=== PATIENT | female | born 2000 | race Caucasian/White ===

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

== ENCOUNTER 2021-02-04 11:04 | Emergency (ER) | payer MEDICAID ==
[2021-02-04] MEDS ORDERED: Sodium Chloride 0.9% 1000 ML 1,000 ML IV STA (11:20)
[2021-02-04] MEDS ORDERED: TYLENOL 325 MG PO ONE (11:20)
[2021-02-04 11:24] VITALS: BP 101/76
[2021-02-04] MEDS ORDERED: TYLENOL 325 MG ONE (11:27)
[2021-02-04] MEDS ORDERED: Sodium Chloride 0.9% 1000 ML 1,000 ML ONE (11:27)
--- NOTE | 2021-02-04 11:38 | ERPHSYRPT ---
- History of Present Illness Time Seen by Provider: 02/04/21 11:25 Source: patient Exam Limitations: no limitations Patient Subjective Stated Complaint: abd cramping/sharp pain Triage Nursing Assessment: pt to ED c/o abd pain with . pt reports 7 weeks confirmed by OBGYN with hcg and ultrasound in his office. was feeling dizzy and nauseated yesterday but has been relieved today. called OBGYN office today for abd pain and was referred to ED for evaluation. pt rates 7/10 pain that worsens with movement. Physician History: Patient is a 20-year-old female G1, P0 currently 7 weeks confirmed via hCG and ultrasound presents to our ED with complaints of intermittent pelvic cramping. Patient states the cramping is primarily suprapubic. No trauma no fever. No hematuria. Patient felt dizzy and nauseous yesterday however this has since resolved. She is no longer dizzy or nauseous. Patient denies associated vaginal discharge. No vaginal pain. Patient states he is otherwise healthy. No vomiting or diarrhea. Symptoms are mild to moderate in intensity. No specific worsening or improving factors. Patient is otherwise healthy. Patient voices no other complaints concerns at this time. Timing/Duration: yesterday Severity: moderate Modifying Factors: Improves With: nothing Associated Symptoms: denies symptoms, No cough, No chills, No chest pain, No fever, No headaches, No syncope, No seizure, No weakness Allergies/Adverse Reactions: No Known Drug Allergies Allergy (Verified 02/04/21 11:10) Home Medications: Albuterol 8 gm Mdi Hfa [Ventolin Hfa MDI] 8 gm IH Q4H PRN PRN 03/20/20 [History] Ciclesonide [Alvesco] 6.1 gm IH DAILY PRN PRN 03/20/20 [History] Desogestrel-Ethinyl Estradiol [Isibloom 28 Day Tablet] 1 tab PO DAILY 03/20/20 [History] Ergocalciferol (Vitamin D2) [Vitamin D2] 1 cap PO WEEKLY 03/20/20 [History] Fluticasone Propionate [Flonase NASAL] 50 gm NS DAILY 03/20/20 [History] Loratadine 10 mg [Claritin 10 mg] 10 mg PO DAILY 03/20/20 [History] Omeprazole 20 mg PO DAILY 03/20/20 [History] Hx Tetanus, Diphtheria Vaccination/Date Given: Yes Hx Influenza Vaccination/Date Given: Yes Hx Pneumococcal Vaccination/Date Given: No Immunizations Up to Date: Yes Travel Risk - International Travel Have you traveled outside of the country in past 3 weeks: No - Coronavirus Screening Are you exhibiting any of the following symptoms?: No Close contact with a COVID-19 positive Pt in past 14-21 Days: No - Vaccine Status Have you recieved a Covid-19 vaccination: No - Review of Systems Constitutional: No Symptoms, No Fever, No Chills Eyes: No Symptoms Ears, Nose, & Throat: No Symptoms Respiratory: No Symptoms, No Cough, No Dyspnea Cardiac: No Symptoms, No Chest Pain, No Edema, No Syncope Abdominal/Gastrointestinal: No Symptoms, No Abdominal Pain, No Nausea, No Vomiting, No Diarrhea Genitourinary Symptoms: No Symptoms, No Dysuria Musculoskeletal: No Symptoms, No Back Pain, No Neck Pain Skin: No Symptoms, No Rash Neurological: No Symptoms, No Dizziness, No Focal Weakness, No Sensory Changes Psychological: No Symptoms Endocrine: No Symptoms Hematologic/Lymphatic: No Symptoms Immunological/Allergic: No Symptoms All Other Systems: Reviewed and Negative - Past Medical History Pertinent Past Medical History: Yes Respiratory History: Asthma GI Medical History: GERD - Past Surgical History Past Surgical History: No - Social History Smoking Status: Never smoker Exposure to second hand smoke: No Drug Use: none Patient Lives Alone: No - Female History Hx Now: Yes Gestational Age: 7 weeks - Nursing Vital Signs Nursing Vital Signs: Initial Vital Signs Temperature 98.0 F 02/04/21 11:11 Pulse Rate 97 H 02/04/21 11:11 Respiratory Rate 20 02/04/21 11:11 Blood Pressure 101/76 02/04/21 11:11 O2 Sat by Pulse Oximetry 95 02/04/21 11:11 Pain Scale Pain Intensity 5 - Physical Exam General Appearance: no apparent distress, alert Eye Exam: PERRL/EOMI, eyes nml inspection Ears, Nose, Throat Exam: normal ENT inspection, TMs normal, pharynx normal, moist mucous membranes Neck Exam: normal inspection, non-tender, supple, full range of motion Respiratory Exam: normal breath sounds, lungs clear, airway intact, No respiratory distress Cardiovascular Exam: regular rate/rhythm, normal heart sounds, normal peripheral pulses Gastrointestinal/Abdomen Exam: soft, normal bowel sounds, No tenderness, No mass Back Exam: normal inspection, normal range of motion, No CVA tenderness, No vert ebral tenderness Extremity Exam: normal inspection, normal range of motion, pelvis stable Neurologic Exam: alert, oriented x 3, cooperative, normal mood/affect, sensation nml, No motor deficits Skin Exam: normal color, warm, dry, No rash Lymphatic Exam: No adenopathy SpO2 Interpretation: normal SpO2: 95 O2 Delivery: Room Air - Radiology Ultrasound Exam OB Ultrasound: tele radiology report (There is a single intrauterine gestational sac with presence of a pole and yolk sac. [place]-rump length is 1.23 cm corresponding to a 7-week and 3-day old fetus. Heart tones are 157. Expected date of confinement is 09/20/2021) Abdomen Ultrasound: discussed w/radiologist (Per director of email marketing unable to visualize appendix) Ordered Tests: Active Orders 24 hr Category Date Time Status IV Insertion STAT Care 02/04/21 11:20 Active ABDOMINAL-LIMITED [US] Stat Exams 02/04/21 13:15 Completed OB LIMITED [US] Stat Exams 02/04/21 11:23 Completed CBC W DIFF Stat Lab 02/04/21 11:20 Completed CULTURE,URINE Stat Lab 02/04/21 11:42 Received HCG, Quantitative (Inhouse) Stat Lab 02/04/21 11:42 Received UA W/RFX UR CULTURE Stat Lab 02/04/21 11:42 Completed Wet Prep Stat Lab 02/04/21 11:42 Completed Medication Summary Discontinued Medications Generic Name Dose Route Start Last Admin Trade Name Bryan PRN Reason Stop Dose Admin Acetaminophen 975 mg 02/04/21 11:20 02/04/21 11:28 Tylenol 325 Mg PO 02/04/21 11:21 975 mg STAT ONE Administration Acetaminophen Confirm 02/04/21 11:27 Tylenol 325 Mg Administered 02/04/21 11:28 Dose 975 mg .ROUTE .STK-MED ONE Sodium Chloride 1,000 mls @ 999 mls/hr 02/04/21 11:20 02/04/21 11:29 Sodium Chloride 0.9% 1000 Ml IV 02/04/21 12:20 999 mls/hr .Q1H1M STA Administration Sodium Chloride Confirm 02/04/21 11:27 Sodium Chloride 0.9% 1000 Ml Administered 02/04/21 11:28 Dose 1,000 mls @ ud .ROUTE .[facility] ONE Nitrofurantoin Macrocrystals 100 mg 02/04/21 12:09 02/04/21 12:20 Macrobid 100mg Capsule PO 02/04/21 12:10 100 mg STAT ONE Administration Nitrofurantoin Macrocrystals Confirm 02/04/21 12:20 Macrobid 100mg Capsule Administered 02/04/21 12:21 Dose 100 mg .ROUTE .[facility] Lab/Rad Data: Laboratory Result Diagrams 02/04/21 11:20 02/04/21 11:42 Laboratory Results 02/04/21 02/04/21 02/04/21 Range/Units 11:42 11:42 11:42 WBC (4.0-10.5) K/mm3 RBC (4.1-5.4) M/mm3 Hgb (12.0-16.0) gm/dl Hct (35-47) % MCV (78-100) fl MCH (26-32) pg MCHC (32-36) g/dl RDW (11.5-14.0) % Plt Count (150-450) K/mm3 MPV (7.5-11.0) fl Gran % (36.0-66.0) % Eos # (Auto) (0-0.5) Absolute Lymphs (auto) (1.0-4.6) Absolute Monos (auto) (0.0-1.3) Lymphocytes % (24.0-44.0) % Monocytes % (0.0-12.0) % Eosinophils % (0.00-5.0) % Basophils % (0.0-0.4) % Absolute Granulocytes (1.4-6.9) Basophils # (0-0.4) Sodium Direct (138-146) mmol/L Potassium (3.5-4.9) mmol/L Chloride (98-109) mmol/L Carbon Dioxide (24-29) mmol/L Venous BUN (8-26) mg/dL Creatinine (0.6-1.3) mg/dL Glucose (70-105) mg/dL Ionized Calcium (1.12-1.32) mmol/L Urine Color ED (YELLOW) Urine Appearance CLOUDY (CLEAR) Urine pH 8.0 (5-6) Ur Specific [place] 1.020 (1.005-1.025) Urine Protein NEGATIVE (Negative) Urine Ketones NEGATIVE (NEGATIVE) Urine Blood NEGATIVE (0-5) Donny/ul Urine Nitrite NEGATIVE (NEGATIVE) Urine Bilirubin NEGATIVE (NEGATIVE) Urine Urobilinogen 4 (0-1) mg/dL Ur Leukocyte Esterase NEGATIVE (NEGATIVE) Urine WBC (Auto) 26-50 (0-5) /HPF Urine RBC (Auto) 6-10 (0-2) /HPF U Epithel Cells (Auto) FEW (FEW) /HPF Urine Bacteria (Auto) NONE (NEGATIVE) /HPF Amorphous Crystals MODERATE (NEGATIVE) /HPF Urine Mucus (Auto) SLIGHT (NEGATIVE) /HPF Urine Culture Reflexed YES (NO) Urine Glucose NEGATIVE (NEGATIVE) mg/dL WBC (Wet Prep) Rare RBC (Wet Prep) None Seen Epi Cells (Wet Prep) Few Bacteria (Wet Prep) Rare Clue Cells (Wet Prep) None Seen Trichomonas (Wet Prep) None Seen Budding Yeast (Wet Prp) None Seen Chlamydia DNA Probe NOT DETECTED (NEGATIVE) N.gonorrhoeae DNA Probe NOT DETECTED (NEGATIVE) 02/04/21 02/04/21 Range/Units 11:42 11:20 WBC 5.2 (4.0-10.5) K/mm3 RBC 4.38 (4.1-5.4) M/mm3 Hgb 13.3 (12.0-16.0) gm/dl Hct 39.5 (35-47) % MCV 90.2 (78-100) fl MCH 30.4 (26-32) pg MCHC 33.7 (32-36) g/dl RDW 13.1 (11.5-14.0) % Plt Count 211 (150-450) K/mm3 MPV 9.5 (7.5-11.0) fl Gran % 71.6 H (36.0-66.0) % Eos # (Auto) 0.05 (0-0.5) Absolute Lymphs (auto) 1.00 (1.0-4.6) Absolute Monos (auto) 0.39 (0.0-1.3) Lymphocytes % 19.4 L (24.0-44.0) % Monocytes % 7.6 (0.0-12.0) % Eosinophils % 1.0 (0.00-5.0) % Basophils % 0.4 (0.0-0.4) % Absolute Granulocytes 3.70 (1.4-6.9) Basophils # 0.02 (0-0.4) Sodium Direct 138 (138-146) mmol/L Potassium 3.6 (3.5-4.9) mmol/L Chloride 102 (98-109) mmol/L Carbon Dioxide 24 (24-29) mmol/L Venous BUN 6 L (8-26) mg/dL Creatinine 0.5 L (0.6-1.3) mg/dL Glucose 87 (70-105) mg/dL Ionized Calcium 1.22 (1.12-1.32) mmol/L Urine Color (YELLOW) Urine Appearance (CLEAR) Urine pH (5-6) Ur Specific [place] (1.005-1.025) Urine Protein (Negative) Urine Ketones (NEGATIVE) Urine Blood (0-5) Donny/ul Urine Nitrite (NEGATIVE) Urine Bilirubin (NEGATIVE) Urine Urobilinogen (0-1) mg/dL Ur Leukocyte Esterase (NEGATIVE) Urine WBC (Auto) (0-5) /HPF Urine RBC (Auto) (0-2) /HPF U Epithel Cells (Auto) (FEW) /HPF Urine Bacteria (Auto) (NEGATIVE) /HPF Amorphous Crystals (NEGATIVE) /HPF Urine Mucus (Auto) (NEGATIVE) /HPF Urine Culture Reflexed (NO) Urine Glucose (NEGATIVE) mg/dL WBC (Wet Prep) RBC (Wet Prep) Epi Cells (Wet Prep) Bacteria (Wet Prep) Clue Cells (Wet Prep) Trichomonas (Wet Prep) Budding Yeast (Wet Prp) Chlamydia DNA Probe (NEGATIVE) N.gonorrhoeae DNA Probe (NEGATIVE) - Progress Progress: improved Progress Note: Patient reassessed. She feels much better. No significant discomfort at this time. Work-up reveals a urinary tract infection. Patient received a dose of Macrobid 02/04/21 12:50 02/04/21 14:21 We performed a abdominal ultrasound to assess for possible appendicitis. However the appendix was not visualized. The urinalysis does not have any other components of urinary tract infection so appendicitis was a concern. Patient feels better. Patient's primary care doctor is Dr. Day. She is not available. Dr. Guy covering. Dr. Guy is not available tomorrow. Case discussed with Dr. Schreiber who will see patient tomorrow to perform a repeat abdominal exam to assure that patient symptoms are not progressing. Plan of care discussed with patient. She agrees to follow-up with Dr. Schreiber tomorrow as described. Patient voiced other complaints concerns at this time. Portions of this note were created with voice recognition technology. There may be grammatical, spelling, punctuation or sound alike errors - Departure Departure Disposition: Home Clinical Impression: UTI (urinary tract infection) Condition: Stable Critical Care Time: No Referrals: FRANCIS BECERRA [Primary Care Provider] - Instructions: Urinary Tract Infection, Adult (DC) Additional Instructions: Discharge/Care Plan FRANCOISE MATT was seen on 02/04/21 in the Emergency Room. The patient was counseled regarding Diagnosis,Lab results, Imaging studies, need for follow up and when to return to the Emergency Room. Prescriptions given: Discharge Note I have spoken with the patient and/or caregivers. I have explained the patient's condition, diagnosis and treatment plan based on the information available to me at this time. I have answered the patient's and/or caregiver's questions and addressed any concerns. The patient and/or caregivers have as good understanding of the patient's diagnosis, condition and treatment plan as can be expected at this point. The vital signs have been stable. The patient's condition is stable and appropriate for discharge from the emergency department. The patient will pursue further outpatient evaluation with the primary care physician or other designated or consulting physician as outlined in the discharge instructions. The patient and/or caregivers are agreeable to this plan of care and follow-up instructions have been explained in detail. The patient and/or caregivers have received these instruction. The patient/and or caregivers are aware that any significant change in condition or worsening of symptoms should prompt an immediate return to this or the closest emergency department or call 911. Prescriptions: Nitrofurantoin Macro 100 mg [Macrobid 100MG Capsule] 100 mg PO BID 7 Days #14 cap
[2021-02-04 11:43] LABS: BASOPHIL % 0.4 % (0.0-0.4); Basophil (Absolute #) 0.02 (0-0.4); Eosinophil (Absolute #) 0.05 (0-0.5); Hematocrit 39.5 % (35-47); Hemoglobin 13.3 gm/dl (12.0-16.0); Lymphocytes % 19.4 % (24.0-44.0); Mean Cell Volume 90.2 fl (78-100); Mean Corpuscular Hemoglobin 30.4 pg (26-32); Mean Corpuscular Hgb Concent. 33.7 g/dl (32-36); Mean Platelet Volume 9.5 fl (7.5-11.0); Monocyte (Absolute #) 0.39 (0.0-1.3); Monocytes % 7.6 % (0.0-12.0); Neutrophil % 71.6 % (36.0-66.0); Platelet Count 211 K/mm3 (150-450); Red Blood Count 4.38 M/mm3 (4.1-5.4); Red Cell Distribution Width 13.1 % (11.5-14.0); White Blood Count 5.2 K/mm3 (4.0-10.5)
[2021-02-04 11:59] LABS: ISTAT CREA 0.5 mg/dL (0.6-1.3)
--- NOTE | 2021-02-04 12:00 | XRAY ---
Indication: Evaluate viability. Limited transabdominal early OB ultrasound performed. Comparison: None There is a single intrauterine gestational sac with presence of a single pole and yolk sac. Mean crown-rump length measures 1.23 cm corresponding to 7 weeks 3 days. heart rate 157 BPM. Expected date confinement is September 20, 2021.
[2021-02-04 12:03] LABS: Amourphous Crystal MODERATE /HPF (NEGATIVE); Appearance CLOUDY (CLEAR); Bilirubin NEGATIVE (NEGATIVE); Blood NEGATIVE Ery/ul (0-5); Epithelial Cells FEW /HPF (FEW); Glucose NEGATIVE (NEGATIVE); Ketones NEGATIVE (NEGATIVE); Leukocyte Esterase NEGATIVE (NEGATIVE); Mucus SLIGHT /HPF (NEGATIVE); Nitrite NEGATIVE (NEGATIVE); Protein,Urine Dip NEGATIVE (Negative); Urobilinogen 4 mg/dL (0-1); WBC 26-50 /HPF (0-5)
[2021-02-04 12:05] LABS: Bacteria Rare; Clue Cells None Seen; Red Blood Cells None Seen; Trichomonas None Seen; White Blood Cells Rare; Yeast None Seen
[2021-02-04] MEDS ORDERED: Macrobid 100MG Capsule PO ONE (12:09)
[2021-02-04] MEDS ORDERED: Macrobid 100MG Capsule ONE (12:20)
[2021-02-04 13:12] LABS: CHLAMYDIA DNA NOT DETECTED (NEGATIVE); GC DNA Probe NOT DETECTED (NEGATIVE)
[2021-02-04 14:08] VITALS: PULSE 97
--- NOTE | 2021-02-04 14:09 | XRAY ---
Indication: Pelvic pain. Targeted right lower quadrant abdominal sonogram negative for focal solid/cystic mass or fluid collection. Appendix not seen.
[2021-02-04 14:23] VITALS: O2SAT 95
== END 2021-02-04 14:29 | disposition home or self-care (01) ==
LOC: ED 11:04
DX: N39.0 Urinary tract infection, site not specified (principal)
CPT/HCPCS: 36000; 36415; 76705; 76815; 80047; 81001; 84702; 85025; 87086; 87210; 87491; 87591; 99284; A9270-GY

== ENCOUNTER 2023-10-31 05:49 | Day surgery (SDC) | payer OTHER ==
[2023-10-31] MEDS ORDERED: Epinephrine Preservative Free 1 MG/ML ONE (06:37)
[2023-10-31] MEDS ORDERED: VANCOCIN INJECTION IV ONE (06:37)
[2023-10-31] MEDS ORDERED: Naropin 0.5% 30 ML VIAL ONE (06:44)
[2023-10-31] MEDS ORDERED: Marcaine 0.5%/Epinephrine 10 ML ONE (06:44)
[2023-10-31] MEDS: NEURONTIN PO ONE (06:46)
[2023-10-31] MEDS: celeBREX 100 MG PO ONE (06:46)
[2023-10-31] MEDS: TYLENOL EXTRA STRENGTH 500 MG PO ONE (06:46)
[2023-10-31] MEDS: Decadron 4 MG PO ONE (06:47)
[2023-10-31] MEDS: Lactated Ringers 1,000 ML IV SCH (06:47)
[2023-10-31 06:51] VITALS: RESP 18
[2023-10-31] MEDS: CEFAZOLIN 2 GM-D5W BAG** 2 GM/50 ML ML IV SCH (06:51)
[2023-10-31] MEDS ORDERED: Versed 2 MG/2 ML Injection ONE (06:55)
[2023-10-31] MEDS ORDERED: SUBLIMAZE 100 MCG/2 ML ONE ×3 (06:55→12:44)
[2023-10-31] MEDS ORDERED: Xylocaine-Mpf 2% 5 Ml Vial ONE (06:55)
[2023-10-31] MEDS ORDERED: DIPRIVAN 200 MG/20 ML IV ONE ×2 (06:56→07:33)
[2023-10-31 07:19] LABS: HCG URINE TEST NEGATIVE (NEGATIVE)
[2023-10-31 07:27] LABS: Absolute Neutrophil Ct (ANC) 2.07 x10^3/uL (1.56-6.13); BASOPHIL % 0.6 % (0.1-1.2); Basophil (Absolute #) 0.02 x10^3/uL (0.01-0.08); Eosinophil % 1.5 % (0.7-5.8); Eosinophil (Absolute #) 0.05 x10^3/uL (0.04-0.36); Hematocrit 37.2 % (34.1-44.9); Hemoglobin 12.1 g/dL (11.2-15.7); Lymphocyte (Absolute #) 1.01 x10^3/uL (1.18-3.74); Lymphocytes % 29.6 % (19.3-51.7); Mean Cell Volume 88.2 fL (79.4-94.8); Mean Corpuscular Hemoglobin 28.7 pg (25.6-32.2); Mean Corpuscular Hgb Concent. 32.5 g/dL (32.2-35.5); Mean Platelet Volume 9.5 fL (9.4-12.3); Monocyte (Absolute #) 0.26 x10^3/uL (0.24-0.86); Monocytes % 7.6 % (4.7-12.5); Neutrophil % 60.7 % (34.0-71.1); Platelet Count 207 x10^3/uL (182-369); Red Blood Count 4.22 x10^6/uL (3.93-5.22); Red Cell Distribution Width 11.9 % (11.7-14.4); White Blood Count 3.4 x10^3/uL (3.98-10.04)
[2023-10-31] MEDS ORDERED: ROCURONIUM BROMIDE IV ONE ×2 (07:33→10:43)
[2023-10-31 07:46] LABS: ALBUMIN 4.1 g/dL (3.5-5.0); ANION GAP 13.9 MEQ/L (5-15); BILIRUBIN,TOTAL 1.8 mg/dL (0.2-1.3); Calcium 9.4 mg/dL (8.4-10.2); Creatinine 1 0.65 mg/dL (0.52-1.04); EST GLOMERULAR FILTRATION RATE 127.6 ML/MIN
[2023-10-31 07:50] LABS: INR 0.95 (0.8-3.0); PROTIME 10.4 SECONDS (9.4-12.5); PTT 26.8 SECONDS (25.1-36.5)
[2023-10-31] MEDS ORDERED: Lactated Ringers 1,000 ML IV ONE ×2 (08:23→11:24)
[2023-10-31] MEDS ORDERED: PHENYLEPHRINE HCL ONE (09:04)
[2023-10-31] MEDS ORDERED: BRIDION 200MG/2ML IV ONE (11:05)
[2023-10-31] MEDS ORDERED: Zofran 4 MG/2 ML VIAL ONE ×2 (11:05→12:05)
[2023-10-31] MEDS ORDERED: Compazine 10 MG/2 ML ONE (12:34)
--- NOTE | 2023-10-31 12:54 | XRAY ---
Indication: Left ankle split tibialis anterior tendon transfer, peroneous longus to brevis tendon transfer, ankle arthroscopy with synovectomy, possible lateral ankle stabilization, and lapidus arthrodesis. Intraoperative fluoroscopy provided for 4 minutes 53 seconds. 71 digital spot images submitted for interpretation demonstrates instrumentation lateral malleolus and talus. Arthrodesis 1st tarsometatarsal articulation with intact hardware. Correlate with intraoperative findings/report.
--- NOTE | 2023-10-31 13:39 | XRAY ---
Four minutes and 53 seconds of fluoroscopy was used in surgery for a left ankle split tibialis anterior tendon transfer, peroneous longus to brevis tendon transfer, ankle arthroscopy with synovectomy, possible lateral ankle stabilization, and lapidus arthrodesis.
[2023-10-31 13:41] VITALS: TEMP 96.8
[2023-10-31 14:15] VITALS: BP 128/68; PULSE 98; O2SAT 100
--- NOTE | 2023-11-01 23:22 | OP ---
SURGERY DATE/TIME: 10/31/2023 9787 - [id number] PREOPERATIVE DIAGNOSES: 1) Left foot drop. 2) Left foot pain. 3) Left ankle pain. 4) Lateral ankle instability. 5) Hallux valgus with hypermobility of first ray. 6) Peroneal tendinitis. POSTOPERATIVE DIAGNOSES: 1) Left foot drop. 2) Left foot pain. 3) Left ankle pain. 4) Lateral ankle instability. 5) Hallux valgus with hypermobility of first ray. 6) Peroneal tendinitis. 7) Low-lying muscle belly peroneus brevis with tenosynovitis. PROCEDURES: 1) Ankle arthroscopy with complete synovectomy, left. 2) Lateral ankle stabilization, left. 3) Peroneus brevis tendon debridement of low-lying muscle belly and tenosynovitis, left. 4) Peroneal longus to brevis tendon transfer, left. 5) Split tibialis anterior transfer to lateral cuneiform, left. 6) Lapidus arthrodesis, left. SURGEON: Yoseph Juarez MD CHILDCARE TEACHER: None. ANESTHESIA: General plus a regional block, popliteal and saphenous. See Anesthesia report for details. HEMOSTASIS: Thigh tourniquet set to 300 mmHg for a total of 118 total tourniquet minutes. ESTIMATED BLOOD LOSS: Approximately 10 mL. MATERIALS: 1) Blake lateral ankle with one 2.9 JuggerKnot to a 2.9 Betta Link with two 1.45 JuggerKnots for the Brostrom portion of the procedure. 2) For the split tibialis anterior tendon transfer, a 2.9 ToggleLoc with broadband. 3) For the InCore Lapidus, a 5.9 x 28 mm post with a 3.5 x 46 and a 3.5 x 34 screw. 4) 4-0 Monocryl. 5) 3-0 nylon. INJECTABLES: See Anesthesia report for details. INDICATIONS FOR PROCEDURE: Patient is a very pleasant 23-year-old female who is well known to my service for instability with gait secondary to seemingly a neurological event that has resulted in significant weakness to the dorsiflexion and eversion of her left foot. Patient has no family history of neurological disorders and no neurological events that seemingly started this issue. 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 As a result, patient was sent for an EMG approximately 2 years ago, which did show some neuropathy to the extremity. However, no significant reduction in the sensory and some restriction in the motor component of the common peroneal nerve distribution. As a result, patient has been left with some indications of a very moderate drop foot. This has limited patient's lifestyle significantly. She has returned to us multiple times with attempts at conservative management which have failed. Patient at this time seemingly would like to proceed with surgical intervention. Patient has been made aware of all risks, complications and benefits of surgical intervention at this time, including but not limited to infection, hematoma, seroma, possibility of delayed wound healing, nonwound healing, possibility of delayed bone healing, possible failure of surgical intervention and likely the need for bracing following the procedure. This will be part of the postoperative course to some degree anyway. Patient understands all of this and wishes to proceed. At this time, plenty of time was allowed for the patient to ask questions which were answered to her apparent satisfaction. At that time, we decided to proceed. DESCRIPTION OF PROCEDURE AND FINDINGS: Patient was brought into the PACU prior to the procedure and provided a popliteal and saphenous block to the left lower extremity. Following this, patient was brought into the operating room and placed on the operating room table in the supine position. General anesthesia was administered. Following patient sedation, a well-padded thigh tourniquet was applied to the left thigh and the tourniquet was set to 300 mmHg with respect to patient's blood pressure. Following this, the left lower extremity was prepped and draped in the typical sterile fashion and lowered onto the surgical field. At this time, attention was directed to the anterior aspect of the ankle joint where medial and lateral malleoli were identified through palpation as well as the palpable dell at the anterior aspect of the ankle in dorsiflexion. Dotted lines were utilized to connect these 3 points and anteromedial portal was established just medial to the tibialis anterior tendon. This was insufflated utilizing approximately 15 mL of Lactated Ringers on an 18-gauge needle. An 11 blade was utilized to make an incision. Blunt dissection was carried down to the level of the capsule. Then an obturator and trocar were introduced. The obturator was then removed and then a 4.0 mm 30-degree camera was inserted, inspecting the joint immediately demonstrating a significant amount of synovitis at the medial and lateral gutters. Following this, the anterolateral portal was established utilizing an 11 blade and blunt dissection utilizing a curved mini, and the 2.7 mm shaver was then introduced performing a synovectomy to this site. Once the hemorrhagic and synovitic tissue were removed, inspection of multiple areas in the ankle joint revealed a low-lying Brimson ligament, which was resected off of the lower portion of the AITFL as well as significantly scarred ATFL ligament, which was cleaned utilizing the shaver. Part was utilized to test the cartilage which was seemingly intact on both the talar and tibial side. From that standpoint, the scope was retracted. An Esmarch was utilized to exsanguinate the leg. Following this, the tourniquet was inflated to 300 mmHg. Curvilinear incision was made at the posterior border of the fibula leading into the anterior process of the calcaneus in order to get exposure to the ATFL and repair this ligament. Once the dissection took place, careful attention was made while carrying the incision down to not make any damage to the neurovascular structures. Any neurovascular structures encountered were either cauterized or retracted out of the field of surgical intervention. Once the cuff of ATFL was identified off of the distal aspect of the fibula, a 2 mm lift was lifted off the periosteum and reflected distally. Scar tissue was then removed from the ATFL. There was a portion of the CFL that was seemingly partially torn as well, which was reflected. At this time, under fluoroscopic guidance finding the palpable dell between the talar neck and the talar head, a 2.9 JuggerKnot was inserted, making sure not to insert into the posterior facet of the subtalar joint. Once inserted, the JuggerKnot was engaged by pulling that aspect of the FiberTape, which was then brought to the footprint of the ATFL and secured utilizing a 2.9 Betta Link. Two 1.45 JuggerKnots were then introduced just proximal and distal to this site on the fibula which was utilized to repair the ATFL and CFL ligaments in the footprint while holding the foot in dorsiflexion and slight eversion. Stress views were once again taken showing a significant improvement in patient's anterior drawer. Following this, attention was directed to the peroneal tendons, which were inspected. Seemingly, most of the tendons were viable distal to the superior peroneal retinaculum. However, superior to this, there was a low-lying muscle belly with significant tenosynovitis on the peroneus brevis muscle. Once the peroneus brevis muscle was debrided, the peroneus longus tendon was identified above the superior peroneal retinaculum. This was resected and then a tenodesis took place utilizing PDS with the peroneus brevis held in a significant amount of tension with eversion, as well as the peroneus longus muscle at its most elongated extent. Once this occurred, the foot was held in a significant improved position from the eversion. However, there is still some aspects of foot drop. The decision was made to proceed with the split tibialis anterior tendon transfer. Following this, a small incision was made approximately 2 cm over the footprint of the insertion of the tibialis anterior. Once the tendon was identified, 50% of the tendon was split and a small umbilical tape was utilized to thread this above the extensor retinaculum. Once a tonsil was utilized to pass the umbilical tape on the front and back side of the tibialis anterior, this was passed in a sawing motion from [id number] through the incision above the extensor retinaculum in order to split the tendon in 50%. From that standpoint, once split, the distal extent was cut and this was passed through the proximal incision and then a tonsil was utilized to thread it under the neurovascular bundle and into the footprint of the lateral cuneiform. Once the lateral cuneiform was identified, a 2.9 ToggleLoc as well as broadband were utilized to secure the tendon into the lateral cuneiform bone. The foot was held in dorsiflexion and in a neutral position following this. From that standpoint, attention was directed over the dorsal aspect of the medial cuneiform and first metatarsal where an InCore Lapidus was performed per template reproduction technician's specifications utilizing a 5.9 x 28 mm post. This was secured once the joint was prepped and fenestrated as well as positioned with the sesamoid positions in the appropriate frontal plane as well as transverse plane and plantar flexion of the first row with a 3.5 x 46 and a 3.5 x 34. Once this occurred, final fluoroscopy images were taken. Copious amounts of sterile saline were utilized to flush the surgical sites. Tourniquet was let down at a total of 118 minutes. Following this, 3-0 Monocryl was utilized to coapt the subcutaneous tissue and 3-0 nylon was utilized to coapt the skin edges in an everted type fashion. Following this, a dressing consisting of Betadine Adaptic, 4 x 4, Kerlix, ABD and a well-padded posterior splint with sugar tong was applied to the patient's left lower extremity with the foot orthogonal relative to the longitudinal axis of the leg. The patient was then reversed from anesthesia and returned to the postoperative anesthesia care unit with vital signs stable and vascular status intact. The patient handled the anesthesia as well as the procedure without any complications. Postoperative orders as indicated in the patient's discharge chart.
== END 2023-10-31 14:38 | disposition home or self-care (01) ==
LOC: SDC 05:49
PROVIDERS: ATTEND Podiatrist Foot & Ankle Surgery
DX: M21.372 Foot drop, left foot (principal); M79.672 Pain in left foot; M25.572 Pain in left ankle and joints of left foot; M25.372 Other instability, left ankle; M20.12 Hallux valgus (acquired), left foot; M76.72 Peroneal tendinitis, left leg
CPT/HCPCS: 27691; 27692; 27698; 27870; 28297; 29898; 36415; 73610; 76000; 76937; 80053; 81025; 82947; 85025; 85610; 85730; C1713; J0171; J0690; J2250; J2371; J2405; J2704; J2795; J3010; J3370; A9270-GY